=== PATIENT | female | born 2005 | race Caucasian/White ===

== ENCOUNTER → 2023-10-27 13:22 | Outpatient (CLI) | payer OTHER, SELFPAY ==
[2023-10-27 15:33] LABS: Urine N gonorrhoeae NOT DETECTED
[2023-10-27 15:34] LABS: Urine Chlamydia NOT DETECTED
== END ==
PROVIDERS: Visit Provider Physician Assistant Surgical
DX: N94.9 Unspecified condition associated with female genital organs and menstrual cycle (principal); N89.8 Other specified noninflammatory disorders of vagina; Z11.8 Encounter for screening for other infectious and parasitic diseases; Z11.3 Encounter for screening for infections with a predominantly sexual mode of transmission
CPT/HCPCS: 87070; 87075; 87077; 87147; 87205; 87210; 87255; 87491; 87591